=== PATIENT | male | born 1985 | race Caucasian/White ===

== ENCOUNTER 2017-01-21 15:20 | Emergency (ER) | payer MEDICAID ==
[2017-01-21 15:40] VITALS: BP 118/86
--- NOTE | 2017-01-21 16:32 | EDM.PDOC ---
ED HPI GENERAL MEDICAL PROBLEM - General Chief Complaint: Lower Extremity Injury/Pain Stated Complaint: LT ANKLE PAIN Time Seen by Provider: 01/21/17 15:45 Source of Information: Reports: Patient History Limitations: Reports: No limitations - History of Present Illness INITIAL COMMENTS - FREE TEXT/NARRATIVE: 31-year-old male with chronic left lower extremity pain since a serious injury 6 months ago. He had extensive surgery for stabilization and eventually a marcus removal on November 18. He felt he was doing better but approximately one week after the marcus removal he stumbled forward and feels he reinjured his foot. Since that time he has had several followup appointments in [facility] but hasn't made them because of transportation issues. He is in today for an opinion on whether he is healing appropriately or what else he needs to do because of the persistent symptoms, he is having trouble bearing weight. Location: Reports: lower extremity, left Severity: moderate Left Ankle Pain Score (Numeric/FACES): 7 - Related Data Allergies Allergy/AdvReac Type Severity Reaction Status Date / Time No Known Allergies Allergy Verified 01/21/17 15:40 Home Meds: Home Meds NK [No Known Home Meds] 01/21/17 [History] Past Medical History Musculoskeletal History: Reports: Fracture, Other (see below) Other Musculoskeletal History: ankle, heel and fibula repair left ankle. Social & Family History - Tobacco Use Smoking Status *Q: Heavy Tobacco Smoker Years of Tobacco use: 10 Packs/Tins Daily: 1 - Recreational Drug Use Recreational Drug Use: Yes Recreational Drug Type: Reports: Marijuana/Hashish Recreational Drug Use Frequency: Daily Review of Systems - Review of Systems Review Of Systems: ROS reveals no pertinent complaints other than HPI. Trauma Exam - Physical Exam Exam: See Below Exam Limited By: No limitations General Appearance: Reports: alert, no apparent distress Head: Reports: atraumatic Respiratory Exam: Reports: no respiratory distress Extremities: Other (Exam of the left lower extremity reveals several well- healed surgical scars and a small scab on the anterior aspect of the distal leg where his recent marcus was removed. There is no redness, warmth, or significant edema. He does have significant pain with plantar flexion against resistance.) Course - Vital Signs Last Recorded V/S: Last Vital Signs Temp 97.7 F 01/21/17 15:38 Pulse 100 01/21/17 15:38 Resp 16 01/21/17 15:38 BP 118/86 01/21/17 15:38 Pulse Ox 97 01/21/17 15:38 - Orders/Labs/Meds Orders: Active Orders 24 hr Category Date Time Status Ankle Min 3V Lt [CR] Stat Exams 01/21/17 15:59 Taken - Re-Assessments/Exams Free Text/Narrative Re-Assessment/Exam: 01/21/17 16:30 An x-ray was obtained which showed what appears to be stable hardware. At that point I discussed his condition with Dr. Gunderson, podiatry in [place] and he agreed to see the patient in the next 1 to 2 weeks for followup. Patient was placed on crutches. BUNGHOLE BORER search was done and he does not take significant numbers of narcotics so 20 [place] were given to use sparingly when trying to rest and should last him until he is rechecked by podiatry. Departure - Departure Time of Disposition: 16:54 Disposition: Home, Self-Care 01 Condition: good Clinical Impression: Acute postoperative pain of left foot - Discharge Information Instructions: Pain Relief Preoperatively and Postoperatively Referrals: PCP,None [Primary Care Provider] - Forms: ED Department Discharge Care Plan Goals: Use crutches, elevate foot when able, and call the clinic tomorrow to establish an appointment with Dr. Neely to be rechecked in the near future. Continue with anti-inflammatories such as ibuprofen or naproxen and use hydrocodone sparingly for intense pain, especially when trying to rest. - My Orders Last 24 Hours: My Active Orders 01/21/17 15:59 Ankle Min 3V Lt [CR] Stat - Assessment/Plan Last 24 Hours: My Active Orders 01/21/17 15:59 Ankle Min 3V Lt [CR] Stat
--- NOTE | 2017-01-22 09:34 | CR ---
Ankle Min 3V Lt INDICATION: pain COMPARISON: None FINDINGS: 3 views. Fixation hardware distal tibia. Healing posttraumatic versus postoperative olivia nge distal tibial shaft above the level of the fixation hardware. Overall alignment is anatomic. Fib renea intact. Degenerative change at the ankle and midfoot. Recommend comparison with prior studies to assess for any change, including presumed postoperative v ersus posttraumatic change in the distal tibial shaft above the fixation hardware.
== END 2017-01-21 16:40 | disposition home or self-care (01) ==
LOC: JP.ED 15:20
DX: G89.18 Other acute postprocedural pain (principal); M25.572 Pain in left ankle and joints of left foot; F17.210 Nicotine dependence, cigarettes, uncomplicated
CPT/HCPCS: 73610-26-LT; 73610-LT; 99283; 99284